=== PATIENT | male | born 1960 | race Caucasian/White ===

== ENCOUNTER 2021-03-07 15:34 | Emergency (ER) | payer OTHER ==
[2021-03-07 16:53] LABS: HEMOGLOBIN 13.9 gm/dl (14.0-17.5); RED BLOOD COUNT 5.11 M/UL (4.20-5.50); WHITE BLOOD COUNT 5.3 K/UL (4.5-11.0)
[2021-03-07 17:17] LABS: BUN/CREATININE RATIO 35 (0-10)
== END 2021-03-07 20:08 | disposition home or self-care (01) ==
LOC: ER1 15:34
PROVIDERS: Family Medicine
DX: R10.9 Unspecified abdominal pain (principal); R41.0 Disorientation, unspecified; E11.9 Type 2 diabetes mellitus without complications; F19.10 Other psychoactive substance abuse, uncomplicated; F15.10 Other stimulant abuse, uncomplicated; Z59.0 Homelessness
CPT/HCPCS: 70450; 71045; 80053; 80307; 81001; 82550; 82553; 83605; 83690; 83735; 83874; 84439; 84443; 84484; 85025; 86140; 93005; 99285; G0480; J7030

== ENCOUNTER 2021-03-08 10:26 | Emergency (ER) | payer OTHER ==
[2021-03-08 11:17] LABS: HEMOGLOBIN 15.5 gm/dl (14.0-17.5)
[2021-03-08 11:21] LABS: RED BLOOD COUNT 5.63 M/UL (4.20-5.50); WHITE BLOOD COUNT 3.5 K/UL (4.5-11.0)
[2021-03-08 11:51] LABS: BUN/CREATININE RATIO 28 (0-10)
== END 2021-03-08 21:40 | disposition short-term general hospital (02) ==
LOC: ER1 10:26
PROVIDERS: Family Medicine
DX: F32.9 Major depressive disorder, single episode, unspecified (principal); D72.819 Decreased white blood cell count, unspecified; E11.65 Type 2 diabetes mellitus with hyperglycemia; Z79.4 Long term (current) use of insulin; Z20.822 Contact with and (suspected) exposure to COVID-19; Z99.3 Dependence on wheelchair
CPT/HCPCS: 80053; 82009; 82550; 82553; 82803; 82962; 83874; 84484; 85025; 93005; 99285; U0002